=== PATIENT | male | born 1985 | race Caucasian/White ===

== ENCOUNTER 2018-05-01 03:26 | Emergency (ER) | payer SELFPAY ==
[~2018-05-01] VITALS: Ht 190.5 cm; Wt 81.6 kg
--- NOTE | 2018-05-01 03:41 | NUR ---
PT CAME IN FOR C/O LT HIP SCIATICA PAIN DESCRIBED BY PT, PLACED ON ER BED 11, SEEN AND EVAL BY DR HERNADEZ, AWAITNG ORDERS.
[2018-05-01] MEDS ORDERED: HYDROCODONE/APAP 10/325MG 1 EA TABLET ONE (03:52)
[2018-05-01] MEDS ORDERED: predniSONE 20 MG TABLET ONE (03:53)
[2018-05-01] MEDS ORDERED: HYDROCODONE/APAP 10/325MG 1 EA TABLET PO ONE (04:00)
[2018-05-01] MEDS ORDERED: predniSONE 20 MG TABLET PO ONE (04:00)
--- NOTE | 2018-05-01 04:12 | NUR ---
PT SEEN AND TX, MEDICATION GIVEN FOR PAIN, RX GIVEN AND RELEASED. PT STABLE AMBULATORY.
[2018-05-01 04:16] VITALS: BP 119/71
== END 2018-05-01 04:17 | disposition home or self-care (01) ==
LOC: ER 03:31
DX: M54.42 Lumbago with sciatica, left side (principal); Z60.2 Problems related to living alone
CPT/HCPCS: 99283; A4606; J7512; Z7610